=== PATIENT | female | born 2000 | race Caucasian/White ===

== ENCOUNTER 2021-12-05 07:43 | Emergency (ER) | payer BC ==
[~2021-12-05] VITALS: Ht 188 cm; Wt 59.9 kg
[2021-12-05] MEDS ORDERED: OCUFLOX5 ML OPTH (08:34)
== END 2021-12-05 08:56 | disposition home or self-care (01) ==
LOC: ED 07:43
DX: H10.9 Unspecified conjunctivitis (principal); Z88.0 Allergy status to penicillin
CPT/HCPCS: 99282